=== PATIENT | male | born 1960 | race Caucasian/White ===

== ENCOUNTER 2020-12-31 11:23 | Emergency (ER) | payer MEDICAID, SELFPAY ==
[~2020-12-31] VITALS: Ht 177.8 cm; Wt 104.3 kg
[~2020-12-31 11:23] MED LIST: CARV3.122 PO; FURO-570 PO; LISI-648 PO; POTA8CAP4 PO; PRO5 PO
--- NOTE | 2020-12-31 11:23 | NUR ---
Pt W/C assisted to ER bed 4.
--- NOTE | 2020-12-31 11:23 | NUR ---
Patient wheelchair assisted to bed 4.
--- NOTE | 2020-12-31 11:25 | NUR ---
60 y/o M wheelchair assisted to bed 4 with c/c medication refill / SOB. Patient A&Ox4, wheelchair assisted d/t bilateral LE edema, states SOB x 3 days and associated edema to bilateral LE. Patient states he was discharged a week ago and prescribed Lasix, however, was unable to have prescription filled. Patient states recent stay at [facility] in [facility], in which services offered to switch his insurance/medication to [facility]. Patient states he attempted to fill it and was advised that they couldn't fill prescription due to this reason. Patient states concern d/t bilateral leg swelling and SOB. SpO2 99% on room air; RR 18 even/unlabored. patient monitor in place. Patient denies chest pain, dizziness, headache, N/V/D, fever/chills, cough, cold-like symptoms. Bed locked in lowest position, side rails x 1, call light in reach. PMH: CHF Meds: Lasix (unable to fill script) [place]
[2020-12-31 11:29] VITALS: BP 124/92
--- NOTE | 2020-12-31 11:29 | NUR ---
Dr. Hung is evaluating patient at bedside.
[2020-12-31 12:50] VITALS: BP 124/92
--- NOTE | 2020-12-31 12:50 | NUR ---
Patient discharged with v/s stable. Written and verbal after care instructions given and explained. Patient verbalized understanding. Wheel Chair Assisted TO LOBBY. All questions addressed prior to discharge. Advised to follow up with PMD.
--- NOTE | 2020-12-31 12:51 | NUR ---
PT GIVEN HOMELESS PACKET, BUS PASS, AND FOOD. PT SIGNED HOMELESS WAIVER.
== END 2020-12-31 12:51 | disposition home or self-care (01) ==
LOC: MED 11:23
DX: M79.89 Other specified soft tissue disorders (principal); N50.89 Other specified disorders of the male genital organs; R06.02 Shortness of breath; F17.200 Nicotine dependence, unspecified, uncomplicated; Z76.0 Encounter for issue of repeat prescription; Z79.899 Other long term (current) drug therapy; Z59.0 Homelessness; Z85.89 Personal history of malignant neoplasm of other organs and systems; Z71.6 Tobacco abuse counseling
CPT/HCPCS: 99281